=== PATIENT | male | born 1935 | race Caucasian/White ===

== ENCOUNTER 2018-04-04 08:53 | Emergency (ER) | payer OTHER ==
[~2018-04-04] VITALS: Ht 172.7 cm; Wt 89.8 kg
[~2018-04-04 08:53] MED LIST: AMLODIPINE BESYL5 MG PO; FIORICET 50-321 EACH PO; GLUCOPHAGE1000 MG PO; HYDROCHLOROTHIA25 M1 PO; LEVAQUIN 500 M500 MG PO; MICARDIS40 MG PO; MINIPRIN81 MG PO; PHENERGAN 25 MG25 M1 PO; VITAMIN D400 UNI1; VYTORIN
[2018-04-04 08:58] VITALS: BP 133/61
== END 2018-04-04 09:30 | disposition home or self-care (01) ==
LOC: ER 08:53
DX: S01.311D Laceration without foreign body of right ear, subsequent encounter (principal); I10 Essential (primary) hypertension; Z90.89 Acquired absence of other organs; Z87.891 Personal history of nicotine dependence; X58.XXXD Exposure to other specified factors, subsequent encounter

== ENCOUNTER → 2018-07-20 | Outpatient (CLI) | payer OTHER | LOC: NUC 07:39 | DX: I10 Essential (primary) hypertension (principal); E11.9 Type 2 diabetes mellitus without complications; E78.00 Pure hypercholesterolemia, unspecified; E78.5 Hyperlipidemia, unspecified; Z87.891 Personal history of nicotine dependence; Z82.49 Family history of ischemic heart disease and other diseases of the circulatory system ==

== ENCOUNTER 2018-09-18 13:39 | Emergency (ER) | payer OTHER ==
[~2018-09-18] VITALS: Ht 175.3 cm; Wt 89.8 kg
--- NOTE | ~2018-09-18 | EKG ---
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1935 Requested By: Sylvie Hartley Order Number: [id number] MD: Luis Das Measurements Intervals [place] Rate: 72 P: 12 IN: 165 QRS: 34 QRSD: 119 T: 59 QT: 437 QTc: 479 Interpretive Statements Sinus rhythm Incomplete left bundle branch block Inferior infarct, old Baseline wander in lead(s) V6 Compared to ECG 08/23/2014 17:36:48 no significant changes Electronically Signed On 09-18-2018 23:54:37 FINANCIAL ASSOCIATE by Luis Das [email or web address] <ELECTRONICALLY SIGNED> By: Luis Das MD 09/18/18 2354 [id number] 141 Luis Das MD /GEOVANY
[2018-09-18 14:13] LABS: ABSOLUTE NEUTROPHILS 6.8 thou/uL (1.4-8.2); BASOPHILS 0.3 % (0.0-2.0); HEMATOCRIT 33.8 % (42.0-52.0); HEMOGLOBIN 11.8 gm/dL (14.0-18.0); LYMPHOCYTES 11.1 % (24.0-44.0); MCH 26.8 pg (26.0-34.0); MCHC 34.8 g/dL (28.0-37.0); MCV 77.1 fL (80.0-100.0); MONOCYTES 6.4 % (1.0-8.0); PLATELET COUNT 264 thou/uL (150-400); POLYS 81.2 % (36.0-66.0); RBC 4.39 mil/uL (4.50-6.00); RDW 14.4 % (10.5-14.5); WBC 8.4 thou/uL (4.0-11.0)
[2018-09-18 14:22] LABS: ANION GAP 12 mmol/L (7-16); BUN 18 mg/dL (7-18); CALCIUM 8.9 mg/dL (8.5-10.1); CHLORIDE 93 mmol/L (98-107); CO2 26 mmol/L (21-32); CREATININE 1.3 mg/dL (0.7-1.3); GLUCOSE 119 mg/dL (74-106); POTASSIUM 3.5 mmol/L (3.5-5.1); SODIUM 131 mmol/L (136-145)
[2018-09-18 14:30] LABS: ALBUMIN 3.7 g/dL (3.4-5.0); SGOT 29 U/L (15-37); SGPT 23 U/L (30-65); TOTAL BILIRUBIN 0.4 mg/dL (<0.1-1.0); TOTAL PROTEIN 7.5 g/dL (6.4-8.2); TROPONIN-I <0.06 ng/mL (<0.06)
[2018-09-18] MEDS ORDERED: TESSALON PERLE100 MG PO (17:45)
[2018-09-18] MEDS ORDERED: VENTOLIN HFA 1818 GM INH (17:45)
[2018-09-18 18:06] VITALS: BP 158/60
== END 2018-09-18 18:07 | disposition home or self-care (01) ==
LOC: ER 13:39
PROVIDERS: Physician Assistant
DX: R05 Cough (principal); R74.0 Nonspecific elevation of levels of transaminase and lactic acid dehydrogenase [LDH]; Z87.891 Personal history of nicotine dependence; I10 Essential (primary) hypertension; Z98.890 Other specified postprocedural states

== ENCOUNTER 2021-01-01 14:50 | Emergency (ER) | payer OTHER ==
[~2021-01-01] VITALS: Ht 172.7 cm; Wt 87.1 kg
[~2021-01-01 14:50] MED LIST changes: +TESSALON PERLE100 MG PO; +VENTOLIN HFA 1818 GM INH
[2021-01-01 15:49] LABS: ABSOLUTE NEUTROPHILS 5.4 thou/uL (1.4-8.2); BASOPHILS 0.6 % (0.0-2.0); EOSINOPHILS 3.5 % (0.0-3.0); HEMATOCRIT 35.9 % (42.0-52.0); HEMOGLOBIN 11.4 gm/dL (14.0-18.0); LYMPHOCYTES 17.6 % (24.0-44.0); MCH 25.2 pg (26.0-34.0); MCHC 31.7 g/dL (28.0-37.0); MCV 79.4 fL (80.0-100.0); MONOCYTES 7.8 % (1.0-8.0); PLATELET COUNT 246 thou/uL (150-400); POLYS 70.5 % (36.0-66.0); RBC 4.52 mil/uL (4.50-6.00); RDW 15.2 % (10.5-14.5); WBC 7.7 thou/uL (4.0-11.0)
[2021-01-01 15:53] LABS: ANION GAP 13 mmol/L (7-16); BUN 20 mg/dL (7-18); CALCIUM 8.5 mg/dL (8.5-10.1); CHLORIDE 103 mmol/L (98-107); CO2 23 mmol/L (21-32); CREATININE 1.5 mg/dL (0.7-1.3); GLUCOSE 100 mg/dL (74-106); POTASSIUM 4.2 mmol/L (3.5-5.1); SODIUM 139 mmol/L (136-145)
[2021-01-01 16:02] LABS: ALBUMIN 3.5 g/dL (3.4-5.0); SGOT 19 U/L (15-37); SGPT 20 U/L (16-63); TOTAL BILIRUBIN 0.4 mg/dL (0.2-1.0); TOTAL PROTEIN 7.3 g/dL (6.4-8.2); TROPONIN-I <0.06 ng/mL (<0.06)
[2021-01-01] MEDS ORDERED: DICLOFENAC SODI75 MG PO (17:41)
[2021-01-01] MEDS ORDERED: TRAZODONE HCL50 MG PO (17:41)
[2021-01-01] MEDS ORDERED: EZETIMIBE10 MG PO (17:42)
[2021-01-01] MEDS ORDERED: SIMVASTATIN40 MG PO (17:42)
[2021-01-01] MEDS ORDERED: TAMSULOSIN HCL0.4 MG PO (17:42)
[2021-01-01] MEDS ORDERED: TRADJENTA5 MG (17:43)
[2021-01-01 17:53] VITALS: BP 171/84
--- NOTE | 2021-01-02 06:56 | EKG ---
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1935 Requested By: James Steele Order Number: [id number] MD: Rich Rosario Measurements Intervals [place] Rate: 88 P: 42 IN: 181 QRS: 47 QRSD: 108 T: -50 QT: 404 QTc: 489 Interpretive Statements Sinus rhythm Multiple ventricular premature complexes Probable left ventricular hypertrophy Anterior ST elevation, probably due to LVH Borderline prolonged QT interval Baseline wander in lead(s) V4 Compared to ECG 09/18/2018 14:13:20 Ventricular premature complex(es) now present Left ventricular hypertrophy now present ST (T wave) deviation now present Myocardial infarct finding no longer present Electronically Signed On 01-02-2021 6:55:59 MEDICAL HISTORIAN by Rich Rosario [email or web address] <ELECTRONICALLY SIGNED> By: Rich Rosario MD, FACC 01/02/21 0655 1523 1523 Rich Rosario MD, FAC /EPI
== END 2021-01-01 17:54 | disposition home or self-care (01) ==
LOC: ER 14:50
PROVIDERS: Physician Assistant
DX: R06.02 Shortness of breath (principal); R79.89 Other specified abnormal findings of blood chemistry; I10 Essential (primary) hypertension; Z79.899 Other long term (current) drug therapy; Z87.891 Personal history of nicotine dependence